=== PATIENT | male | born 1985 | race Caucasian/White ===

== ENCOUNTER 2019-07-31 17:10 | Emergency (ER) | payer OTHER ==
[~2019-07-31] VITALS: Ht 175.3 cm; Wt 97.7 kg
[2019-07-31] MEDS ORDERED: IV NORMAL SALINE 1,000ML 1,000 ML IV SCH (17:45)
--- NOTE | 2019-07-31 17:49 | PHYS DOC ---
Adult General Chief Complaint Chief Complaint: LOWER EXT PAIN HPI HPI 33-year-old male presents with right lower leg that swollen and hot area the patient started to feel like he had pain in that leg at 11:30 this morning. Within a couple hours his entire lower extremity from the knee down was read and the patient felt feverish. On arrival to the ER he was 100.9. Patient has a history of cellulitis. He has had cellulitis in the same lower extremity. He is also had soft tissue surgery in the past. The patient is a prisoner so he does not know exactly what his diagnosis was last time. It was concern for sepsis with his previous admission. Review of Systems Review of Systems Constitutional: Fever[] Eyes: Denies change in visual acuity, redness, or eye pain [] HENT: Denies nasal congestion or sore throat [] Respiratory: Denies cough or shortness of breath [] Cardiovascular: No additional information not addressed in HPI [] GI: Denies abdominal pain, nausea, vomiting, bloody stools or diarrhea [] : Denies dysuria or hematuria [] Musculoskeletal: Denies back pain or joint pain [] Integument: Rash right lower leg[] Neurologic: Denies headache, focal weakness or sensory changes [] Endocrine: Denies polyuria or polydipsia [] All other systems were reviewed and found to be within normal limits, except as documented in this note. Allergies Allergies Allergies Coded Allergies Type Severity Reaction Last Updated Verified Penicillins Allergy Unknown 07/31/19 Yes Physical Exam Physical Exam Constitutional: Well developed, well nourished, no acute distress, non-toxic ap pearance. [] HENT: Normocephalic, atraumatic, bilateral external ears normal, oropharynx moist, no oral exudates, nose normal. [] Eyes: PERRLA, EOMI, conjunctiva normal, no discharge. [] Neck: Normal range of motion, no tenderness, supple, no stridor. [] Cardiovascular:Heart rate regular rhythm, no murmur [] Lungs & Thorax: Bilateral breath sounds clear to auscultation [] Abdomen: Bowel sounds normal, soft, no tenderness, no masses, no pulsatile masses. [] Skin: Erythematous and hot to the touch right lower extremity from the knee down to the ankle. Leg is more swollen left.[] Back: No tenderness, no CVA tenderness. [] Extremities: No tenderness, no cyanosis, no clubbing, ROM intact, no edema. [] Neurologic: Alert and oriented X 3, normal motor function, normal sensory function, no focal deficits noted. [] Psychologic: Affect normal, judgement normal, mood normal. [] EKG EKG [] Radiology/Procedures Radiology/Procedures [] Course & Med Decision Making Course & Med Decision Making Pertinent Labs and Imaging studies reviewed. (See chart for details) The patient has a fever and tachycardia on arrival. His appears an obvious source of infection in the right lower extremity. The patient meets sepsis criteria. I have ordered 30 mL/kg of actual body weight almost saline. Blood cultures and lactic acid of been drawn. The patient had complications with the vancomycin with his last cellulitis and sepsis admission. I ordered Rocephin and daptomycin. Patient will be given a gram of Tylenol. The patient will need to be admitted to a facility with infectious disease coverage. I will discuss the patient with [facility]. He presents with some would prefer that the patient be transferred to the [facility] system. We will coordinate the transfer to [facility]. I spoke with Dr. Pate and she has accepted the isidro otero for transfer. He will go by ambulance. 52 minutes of critical care time was spent on this patient exclusive of other billable procedures. [] Dragon Disclaimer Dragon Disclaimer This electronic medical record was generated, in whole or in part, using a voice recognition dictation system. Departure Departure: Impression: Primary Impression: Sepsis Additional Impression: Cellulitis of right leg without foot Disposition: 01 HOME/RESIDENCE PRIOR TO ADM Condition: STABLE Referrals: PCP,NO (PCP) Sepsis Assessment: Date and Time of Assessment Date: Jul 31, 2019 Time: 17:30 Vital Signs Vital Signs Blood pressure 136/78, respiratory rate 18, 100% room air, temperature 100.9, heart rate 117 Respirations Respiratory Effort: Normal Respiratory Pattern: Normal Cardiovascular Pulse Rhythm: Regular HEART: S1 and S2 normal Lung Sounds Breath Sounds: Clear Capillary Refill Capillary Refill: Rt Hand < 3 seconds Peripheral Pulse Pulse Location: Monitor Pulse Strength: Normal (2+) Pulse Assessment Method: Monitor Integumentary Skin: Warm Skin Moisture: Dry Skin Color: erythema Fingernail Color: WNL Sepsis Assessment: Date and Time of Assessment Date: Jul 31, 2019 Time: 18:07 Vital Signs Vital Signs Heart rate 116, blood pressure 139/78, O2 98% on room air Respirations Respiratory Effort: Normal Respiratory Pattern: Normal Cardiovascular Pulse Rhythm: Regular HEART: S1 and S2 normal Lung Sounds Breath Sounds: Clear Capillary Refill Capillary Refill: Rt Hand < 3 seconds Peripheral Pulse Pulse Location: Monitor Pulse Strength: Normal (2+) Pulse Assessment Method: Monitor Integumentary Skin: Warm Skin Moisture: Dry Skin Turgor: Normal Skin Color: erythema Fingernail Color: WNL Problem Qualifiers Primary Impression: Sepsis Sepsis type: sepsis due to unspecified organism Sepsis acute organ dysfunction status: without acute organ dysfunction Qualified Codes: A41.9 - Sepsis, unspecified organism BART MOSES DO Jul 31, 2019 17:49
[2019-07-31 17:52] LABS: BASO # 0.1 x10^3/uL (0.0-0.2); BASO % 1 % (0-3); EOS % 0 % (0-3); HEMATOCRIT 46.8 % (39.0-53.0); HEMOGLOBIN 15.8 g/dL (13.0-17.5); LYMPH # 0.5 x10^3/uL (1.0-4.8); LYMPH % 4 % (24-48); MEAN CORPUSCULAR HEMOGLOBIN 29 pg (25-35); MEAN CORPUSCULAR HGB CONC 34 g/dL (31-37); MEAN CORPUSCULAR VOLUME 86 fL (79-100); MONO # 0.9 x10^3/uL (0.0-1.1); MONO % 8 % (0-9); NEUT # 10.4 x10^3uL (1.8-7.7); NEUT % 87 % (31-73); PLATELET COUNT 194 x10^3/uL (140-400); RED BLOOD COUNT 5.47 x10^6/uL (4.30-5.70); RED CELL DISTRIBUTION WIDTH 12.5 % (11.5-14.5)
[2019-07-31] MEDS ORDERED: ACETAMINOPHEN 500 MG TABLET PO ONE (18:00)
[2019-07-31 18:02] LABS: CALCIUM 9.2 mg/dL (8.5-10.1); CREATININE 1.2 mg/dL (0.7-1.3); GFR 69.3; POTASSIUM 3.5 mmol/L (3.5-5.1)
[2019-07-31] MEDS ORDERED: cefTRIAXone SODIUM 1 GM VIAL ONE (18:16)
[2019-07-31] MEDS ORDERED: IV NORMAL SALINE 50ML 50 ML ONE ×2 (18:16→18:42)
[2019-07-31 18:17] LABS: ALBUMIN 3.8 g/dL (3.4-5.0); ALBUMIN/GLOBULIN RATIO 1.1 (1.0-1.7); TOTAL PROTEIN 7.2 g/dL (6.4-8.2)
[2019-07-31 19:21] VITALS: BP 123/73
== END 2019-07-31 21:27 | disposition home or self-care (01) ==
LOC: ER 17:10
DX: A41.9 Sepsis, unspecified organism (principal); L03.115 Cellulitis of right lower limb; Z88.0 Allergy status to penicillin
CPT/HCPCS: 36415; 80053; 83605; 85025; 87040; 96365; 96366; 96368; 99284; J0696; J0878; J7030